=== PATIENT | male | born 2000 | race African-American/Black ===

== ENCOUNTER 2018-08-09 20:45 | Emergency (ER) | payer OTHER ==
[2018-08-09 21:07] VITALS: PULSE 50; TEMP 98.9; BMI 24.3
[2018-08-09] MEDS ORDERED: KETOROLAC TROMETHAMINE 60 MG/2 ML VIAL IM ONE (21:27)
--- NOTE | 2018-08-09 21:36 | PDOC ---
Documentation entered by Juanjo Barillas SCRIBE, acting as scribe for Enio Arce MD. Enio Arce MD: This documentation has been prepared by the Eran alfaro Nirvannie, SCRIBE, under my direction and personally reviewed by me in its entirety. I confirm that the documentation accurately reflects all work, treatment, procedures, and medical decision making performed by me. History of Present Illness - General Chief Complaint: Blood Pressure Problem Stated Complaint: HIGH BLOOD PRESSURE Time Seen by Provider: 08/09/18 21:03 History Source: Patient Exam Limitations: No Limitations - History of Present Illness Initial Comments: 08/09/18 21:31 HPI: The patient is a 18 year old male, with no significant past medical history, who presents to the emergency department with, 3 weeks of worsening intermittent headache. As per patient, his headache today onset while with his sharepoint trainer at which time he tested his blood pressure and it was elevated to 172/ 84. While in the ER, patient describes his headache as a tightness, rated a 5/ 10 with associated fatigue. His pain is mildly alleviated with 2 Tylenol/day, patient did not take anything for his pain today. He denies any focal weakness, or change in strength/sensation. He denies any visionary or auditory changes. He denies any recent fevers, chills, or dizziness. He denies any recent nausea, vomit, diarrhea or constipation. He denies any recent chest pain or shortness of breath. He denies any recent dysuria, frequency, urgency or hematuria. PAST MEDICAL HISTORY: no significant history PAST SURGICAL HISTORY: no significant history FAMILY HISTORY: no pertinent history SOCIAL HISTORY: Pt lives with family and is a full-time student. MEDICATIONS: reviewed ALLERGIES: As per nursing notes ROS: General: +Elevated blood pressure. No fevers or chills, no weakness, no weight loss HEENT: No change in vision. No sore throat,. No ear pain CardioVascular: No chest pain or shortness of breath Respiratory:No cough, or wheezing. Gastrointestinal: no nausea, vomiting, diarrhea or constipation, No rectal bleeding Genitourinary: No dysuria, hematuria, or frequency Musculoskeletal: No joint or muscle pain or swelling Neurologic: +Headache. No vertigo, dizziness or loss of consciousness Psychiatric: nor depression Skin: No rashes or easy bruising Endocrine: no increased thirst or abnormal weight change Allergic: no skin or latex allergy All other systems reviewed and normal Physical Exam: GENERAL: The patient is awake, alert, and fully oriented, in no acute distress. HEAD: Normal with no signs of trauma. EYES: Pupils equal, round and reactive to light, extraocular movements intact, sclera anicteric, conjunctiva clear. EXTREMITIES: Normal range of motion, no edema. NEUROLOGICAL: Normal speech, normal gait. PSYCH: Normal mood, normal affect. SKIN: Warm, Dry, normal turgor, no rashes or lesions noted. 08/09/18 21:38 Assessment and plan: This is a 18-year-old male who comes in complaining of a headache times several days. Patient took 2 Tylenol yesterday otherwise denies taking medication. Patient said headache is 5 out of 10. Is not his worst headache of his life. Patient denies history of headaches. Patient said that he was playing basketball when he complained of a headache so his sharepoint trainer took his blood pressure and it was elevated so he was told to come to eat for evaluation. In the ED has blood pressure was 118/43. Patient other than the headache denied any complaints or any neurological symptoms, neck stiffness, fever, recent illness or any other complaints. Patient discharged home will follow-up with his primary care nurse physician and the [facility] Past History - Past Medical History Allergies/Adverse Reactions: Allergies Allergy/AdvReac Type Severity Reaction Status Date / Time No Known Allergies Allergy Verified 08/09/18 21:01 Home Medications: Ambulatory Orders Acetaminophen [Tylenol Extra Strength] 500 mg PO ONCE 08/09/18 Montelukast Sodium [Singulair] 10 mg PO DAILY 08/09/18 Asthma: Yes COPD: No - Immunization History Immunization Up to Date: Yes - Suicide/Smoking/Psychosocial Hx Smoking History: Never smoked Hx Alcohol Use: Yes Drug/Substance Use Hx: Yes (MARIJUANA) *Physical Exam - Vital Signs Last Vital Signs Temp Pulse Resp BP Pulse Ox 98.9 F 50 L 16 118/43 L 100 08/09/18 20:57 08/09/18 20:57 08/09/18 20:57 08/09/18 20:57 08/09/18 20:57 *DC/Admit/Observation/Transfer Diagnosis at time of Disposition: Headache - Discharge Dispostion Disposition: HOME Condition at time of disposition: Good Decision to Admit order: No - Referrals - Patient Instructions Additional Instructions: Return to the emergency department immediately with ANY new, persistent or worsening symptoms. Continue any medications as previously prescribed by your physician. You should follow up with your primary doctor as soon as possible regarding today's emergency department visit. . Please make sure your doctor reviews the results of your emergency evaluation. Thank you for coming to the Emergency Department today for your care. It was a pleasure to see you today. Please note that your evaluation is INCOMPLETE until you follow-up with your doctor. Take take ibuprofen 3 tablets 3 times a day with food don't take on an empty stomach. Follow-up with your [facility] - Post Discharge Activity
[2018-08-09] MEDS ORDERED: KETOROLAC TROMETHAMINE 60 MG/2 ML VIAL ONE (21:38)
[2018-08-09 21:43] VITALS: BP 129/82
== END 2018-08-09 21:48 | disposition home or self-care (01) ==
LOC: FER 20:45
PROC: 3E0233Z Introduction of Anti-inflammatory into Muscle, Percutaneous Approach (ICD-10-PCS; principal; 2018-08-09)
DX: R51 Headache (principal)
CPT/HCPCS: 99281-25